=== PATIENT | female | born 1950 | race Caucasian/White ===

== ENCOUNTER 2019-05-31 11:47 | Emergency (ER) | payer MEDICARE, OTHER ==
[~2019-05-31] VITALS: Ht 172.7 cm; Wt 68.0 kg
--- OUTSIDE RECORDS SUMMARY | ~2019-05-31 | XMS | Clinical Summary ---
Demographics + + + | Address | [email or web address] | | | [place] [address] | + + + | Home Phone | | + + + | Preferred Language | Unknown | + + + | Marital Status | | + + + | Nondenominational Affiliation | Unknown | + + + | Race | Unknown | + + + | Ethnic Group | Unknown | + + + Author + + + | Author | [facility] (Historical as of | | | 04-16-19) | + + + | Organization | [facility] (Historical as of | | | 04-16-19) | + + + | Address | Unknown | + + + | Phone | Unavailable | + + + Support + + +---------+ + | Name | Relationship | Address | Phone | + + +---------+ + | Avel Carvajal | ECON | Unknown | | + + +---------+ + Care Team Providers + +------+ + | Care Frame Expander Name | Role | Phone | + +------+ + PP | Unavailable | + +------+ + Allergies Not on File Current Medications Not on file Active Problems Not on file Social History + +-------+ +--------+------+ | Tobacco Use | Types | Packs/Day | Years | Date | | | | | Used | | + +-------+ +--------+------+ | Never Assessed | | | | | + +-------+ +--------+------+ + + + | Sex Assigned at | Date Recorded | | | | + + + | Not on file | | + + + Plan of Treatment +--------+ + + + + | Date | Type | Specialty | Care Team | Description | +--------+ + + + + | 06/02/ | Initial | | Peace Bill DO | | | 2019 | consult | | [address] | | | | | | [place] | | | | | | [address] | | | | | | | | +--------+ + + + + + + + + + | Health Maintenance | Due Date | Last Done | Comments | + + + + + | Vaccine: | | | | | Dtap/Tdap/Td (1 - | 7 | | | | Tdap) | | | | + + + + + | Breast Cancer | | | | | Screening | 8 | | | | (Mammogram) | | | | + + + + + | Colon Cancer | | | | | Screening | 8 | | | | (Colonoscopy) | | | | + + + + + | Vaccine: Zoster (1 | | | | | of 2) | 8 | | | + + + + + | DEXA SCAN SCREENING | | | | | | 3 | | | + + + + + | Vaccine: | | 07/17/2015 | | | Pneumococcal 65+ | 6 | | | | Low/Medium Risk (2 | | | | | of 2 - PCV13) | | | | + + + + + | Vaccine: Influenza | | 08/07/2012, 08/11/2008, | | | (#1) | 9 | 08/20/2007 | | + + + + + Results Not on filefrom Last 3 Months Insurance + +--------+ +------+-------+ + | Payer | Benefi | Subscriber | Type | Phone | Address | | | t Plan | ID | | | | | | / | | | | | | | Group | | | | | + +--------+ +------+-------+ + | MEDICARE | MEDICA | [id number] | | | [address] | | | RE | | | | [place] [address] | | | IP-OP | | | | | + +--------+ +------+-------+ + + +--------+ +--------+ + + | Guarantor Name | Accoun | Relation to | Date | Phone | Billing Address | | | t Type | Patient | of | | | | | | | | | | + +--------+ +--------+ + + | JOZEF CARVAJAL | Person | Self [birth year] Home: | [address] | | | al/Fam | | [phone] | [phone] [place] [address] | | | jemal | | | [phone] | | + +--------+ +--------+ + +"
--- OUTSIDE RECORDS SUMMARY | ~2019-05-31 | XMS ---
Demographics + + + | Address | [address] | | | [place] [address] | + + + | Preferred Language | Unknown | + + + | Marital Status | Unknown | + + + | Advent Affiliation | Unknown | + + + | Race | Unknown | + + + | Ethnic Group | Unknown | + + + Author + + + | Author | [facility] | + + + | Organization | [facility] | + + + | Address | [address] | | | [place] [address] | + + + | Phone | | + + + Care Team Providers + + + + | Care Director Orange Name | Role | Phone | + + + + Unavailable | Unavailable | + + + + PROBLEMS +---------+ + + +--------+ + + | Type | Condition | ICD9-CM | ICZ53-[id number] | Onset | Condition | SNOMED | | | | Code | Code | Dates | Status | Code | +---------+ + + +--------+ + + | Problem | Insomnia | | G47.00 | | Active | 351757084 | +---------+ + + +--------+ + + | Problem | Hypothyroi | | E03.9 | | Active | 89896834 | | | dism | | | | | | +---------+ + + +--------+ + + | Problem | History of | | Z86.39 | | Active | 026638126 | | | | | | | | | | | hyperlipid | | | | | | | | emia | | | | | | +---------+ + + +--------+ + + | Problem | Anxiety | | F41.9 | | Active | 73685731 | +---------+ + + +--------+ + + | Problem | Hypothyroi | | E03.9 | | Active | 28327216 | | | dism, | | | | | | | | unspecifie | | | | | | | | d | | | | | | +---------+ + + +--------+ + + | Problem | History of | Z86.73 | | | Active | 580621023 | | | TIA | | | | | | | | (transient | | | | | | | | ischemic | | | | | | | | attack) | | | | | | +---------+ + + +--------+ + + ALLERGIES No Information SOCIAL HISTORY Never Assessed PLAN OF CARE + +---------+ | Activity | Details | + +---------+ +---+ | | +---+ + + + | Pending Test | TSH | + + + | Pending Test | Lipid Panel | + + + VITAL SIGNS MEDICATIONS Unknown Medications RESULTS No Results PROCEDURES No Known procedures IMMUNIZATIONS No Known Immunizations MEDICAL (GENERAL) HISTORY + + +--------+ | Type | Description | Date | + + +--------+ | Medical History | stint put in to left | | | | carotid artery | | + + +--------+ | Medical History | stroke | | + + +--------+ | Medical History | high cholesterol | | + + +--------+ | Medical History | htn | | + + +--------+ | Medical History | hrt | | + + +--------+ | Medical History | Left-sided ischial pain | | + + +--------+ | Medical History | Knee pain, right | | + + +--------+ | Medical History | Pain in left knee | | + + +--------+ | Medical History | Other chronic pain | | + + +--------+ | Surgical History | stint surgery | 01/2015 | + + +--------+"
--- OUTSIDE RECORDS SUMMARY | ~2019-05-31 | XMS ---
Demographics + + + | Address | [address] | | | [place] [address] | + + + | Preferred Language | Unknown | + + + | Marital Status | Unknown | + + + | Sabianism Affiliation | Unknown | + + + | Race | Unknown | + + + | Ethnic Group | Unknown | + + + Author + + + | Author | [facility] | + + + | Organization | [facility] | + + + | Address | [address] | | | [place] [address] | + + + | Phone | | + + + Care Team Providers + + + + | Care Manager Heart Failure Name | Role | Phone | + + + + Unavailable | Unavailable | + + + + PROBLEMS + + + + + + + + | Type | Condition | ICD9-CM | XIP12-XC | Onset | Condition | SNOMED | | | | Code | Code | Dates | Status | Code | + + + + + + + + | Assessment | Pain in | | M25.561 | Nov, | Active | [id number] | | | right knee | | | 2017 | | [address] | + + + + + + + + | Problem | Hypothyroi | | E03.9 | | Active | 65359234 | | | dism, | | | | | | | | unspecifie | | | | | | | | d | | | | | | + + + + + + + + | Problem | History of | Z86.73 | | | Active | 663766823 | | | TIA | | | | | | | | (transient | | | | | | | | ischemic | | | | | | | | attack) | | | | | | + + + + + + + + | Assessment | History of | | Z86.39 | 25 Nov, | Active | | | | | | | 2016 | | | | | hyperlipid | | | | | | | | emia | | | | | | + + + + + + + + | Assessment | Hypothyroi | | E03.9 | Nov, | Active | 64793653 | | | dism | | | 2016 | | | + + + + + + + + | Problem | History of | | Z86.39 | | Active | | | | | | | | | | | | hyperlipid | | | | | | | | emia | | | | | | + + + + + + + + | Problem | Anxiety | | F41.9 | | Active | 76445753 | + + + + + + + + ALLERGIES + + + + +---------+ | Substance | Reaction | Event Type | Date | Status | + + + + +---------+ | N.K.[email or web address]. | Unknown | Non Drug | Nov, | Unknown | | | | Allergy | | | + + + + +---------+ SOCIAL HISTORY No smoking Hx information available PLAN OF CARE VITAL SIGNS + + + + | Height | 67 in | 2016-12-23 | + + + + | Weight | 168.4 lbs | 2016-12-23 | + + + + | BMI | 26.37 kg/m2 | 2016-12-23 | + + + + | Temperature | 97.8 degrees Fahrenheit | 2016-12-23 | + + + + | Heart Rate | 96 /min | 2016-12-23 | + + + + | Blood pressure systolic | 138 mm Hg | 2016-12-23 | + + + + | Blood pressure diastolic | 83 mm Hg | 2016-12-23 | + + + + MEDICATIONS + + + + + + + +--------+ | Medicati | Instruct | Dosage | Frequenc | Start | End Date | Duration | Status | | on | ions | | y | Date | | | | + + + + + + + +--------+ | Red | Orally | take 2 | 12h | 25 Apr, | 20 May, | 30 | Active | | Yeast | bid | tablets | | 2017 | 2018 | day(s) | | | Rice 600 | | as | | | | | | | MG | | directed | | | | | | + + + + + + + +--------+ | Zolpidem | Orally | 1 tablet | 24h | | | 90 days | Active | | | Once a | at | | | | | | | Tartrate | day | bedtime | | | | | | | 5 MG | | | | | | | | + + + + + + + +--------+ | Progeste | po 3 | 1 cap | | | | 70 days | Active | | elvia 100 | times a | | | | | | | | MG | week | | | | | | | + + + + + + + +--------+ | Estradio | Orally 3 | 1 tablet | | | | 90 days | Active | | l 0.5 MG | days | | | | | | | | | per week | | | | | | | + + + + + + + +--------+ | Levoceti | Orally | 1 tab(s) | 24h | | May, | 90 days | Active | | rizine | daily | | | | 2016 | | | | Dihydroc | | | | | | | | | hloride | | | | | | | | | 5 MG | | | | | | | | + + + + + + + +--------+ | Levothyr | Orally | 1 tablet | 24h | 16 Oct, | | 30 days | Active | | oxine | Once a | | | 2015 | | | | | Sodium | day | | | | | | | | 75 MCG | | | | | | | | + + + + + + + +--------+ | Aspirin | p.o. bid | 1 tab(s) | 12h | | | | Active | | 81 mg | | | | | | | | + + + + + + + +--------+ | Fish Oil | | | | | | | Active | + + + + + + + +--------+ | Probioti | | | | | | | Active | | c | | | | | | | | + + + + + + + +--------+ | Venlafax | Orally | 1 tablet | 24h | | | 90 days | Active | | ine HCl | once | with | | | | | | | 75 mg | daily | food | | | | | | + + + + + + + +--------+ | Super B | | | | | | | Active | | Complex | | | | | | | | + + + + + + + +--------+ | Magnesiu | | | | | | | Active | | m | | | | | | | | + + + + + + + +--------+ RESULTS No Results PROCEDURES + + + + + | Procedure | Date Ordered | Related Diagnosis | Body Site | + + + + + | Office Visit, Est | December 23, 2016 | | | | Pt., Level 3 | | | | + + + + + IMMUNIZATIONS No Known Immunizations"
--- OUTSIDE RECORDS SUMMARY | ~2019-05-31 | XMS ---
Demographics + + + | Address | [address] | | | [place] [address] | + + + | Preferred Language | Unknown | + + + | Marital Status | Unknown | + + + | Jainism Affiliation | Unknown | + + + | Race | Unknown | + + + | Ethnic Group | Unknown | + + + Author + + + | Author | [facility] | + + + | Organization | [facility] | + + + | Address | [address] | | | [place] [address] | + + + | Phone | | + + + Care Team Providers + + + + | Care Nursing Care Attendant Name | Role | Phone | + + + + Unavailable | Unavailable | + + + + PROBLEMS +---------+ + + +--------+ + + | Type | Condition | ICD9-CM | [id number] | Onset | Condition | SNOMED | | | | Code | Code | Dates | Status | Code | +---------+ + + +--------+ + + | Problem | Hypothyroi | | E03.9 | | Active | 44148559 | | | dism | | | | | | +---------+ + + +--------+ + + | Problem | Hypothyroi | | E03.9 | | Active | 19181236 | | | dism, | | | | | | | | unspecifie | | | | | | | | d | | | | | | +---------+ + + +--------+ + + | Problem | Anxiety | | F41.9 | | Active | 44952660 | +---------+ + + +--------+ + + | Problem | History of | Z86.73 | | | Active | 324336552 | | | TIA | | | [...] +---------+ + + +--------+ + + ALLERGIES Unknown Allergies SOCIAL HISTORY No smoking Hx information available PLAN OF CARE VITAL SIGNS MEDICATIONS Unknown Medications RESULTS No Results PROCEDURES No Known procedures IMMUNIZATIONS No Known Immunizations"
--- OUTSIDE RECORDS SUMMARY | ~2019-05-31 | XMS ---
Demographics + + + | Address | [address] | | | [place] [address] | + + + | Preferred Language | Unknown | + + + | Marital Status | Unknown | + + + | Jain Affiliation | Unknown | + + + | Race | Unknown | + + + | Ethnic Group | Unknown | + + + Author + + + | Author | [facility] | + + + | Organization | [facility] | + + + | Address | [address] | | | [place] [address] | + + + | Phone | | + + + Care Team Providers + + + + | Care Olive Packer Name | Role | Phone | + + + + Unavailable | Unavailable | + + + + PROBLEMS +---------+ + + +--------+ + + | Type | Condition | ICD9-CM | AAD45-XM | Onset | Condition | SNOMED | | | | Code | Code | Dates | Status | Code | +---------+ + + +--------+ + + | Problem | Hypothyroi | | E03.9 | | Active | 49853382 | | | dism | | | | | | +---------+ + + +--------+ + + | Problem | Hypothyroi | | E03.9 | | Active | 74188132 | | | dism, | | | | | | | | unspecifie | | | | | | | | d | | | | | | +---------+ + + +--------+ + + | Problem | Anxiety | | F41.9 | | Active | 64834877 | +---------+ + + +--------+ + + | Problem | History of | Z86.73 | | | Active | 404320076 | | | TIA | | | [...] available PLAN OF CARE VITAL SIGNS MEDICATIONS + + + + + + + +--------+ | Medicati | Instruct | Dosage | Frequenc | Start | End Date | Duration | Status | | on | ions | | y | Date | | | | + + + + + + + +--------+ | Levothyr | Orally | 1 tablet | 24h | 16 Oct, | | 90 days | Active | | oxine | [...] | 1 cap | | | | 90 days | Active | | elvia 100 | times a | | | | | | | | mg | week | | | | | | | + + + + + + + +--------+ RESULTS No Results PROCEDURES No Known procedures IMMUNIZATIONS No Known Immunizations"
--- OUTSIDE RECORDS SUMMARY | ~2019-05-31 | XMS ---
Demographics + + + | Address | [address] | | | [place] [address] | + + + | Preferred Language | Unknown | + + + | Marital Status | Unknown | + + + | Judaism Affiliation | Unknown | + + + | Race | Unknown | + + + | Ethnic Group | Unknown | + + + Author + + + | Author | [facility] | + + + | Organization | [facility] | + + + | Address | [address] | | | [place] [address] | + + + | Phone | | + + + Care Team Providers + + + + | Care Early Childhood Teacher Name | Role | Phone | + + + + Unavailable | Unavailable | + + + + PROBLEMS +---------+ + + +--------+ + + | Type | Condition | ICD9-CM | MHY91-KC | Onset | Condition | SNOMED | | | | Code | Code | Dates | Status | Code | +---------+ + + +--------+ + + | Problem | Hypothyroi | | E03.9 | | Active | 24248535 | | | dism | | | | | | +---------+ + + +--------+ + + | Problem | Hypothyroi | | E03.9 | | Active | 87244785 | | | dism, | | | | | | | | unspecifie | | | | | | | | d | | | | | | +---------+ + + +--------+ + + | Problem | Anxiety | | F41.9 | | Active | 66388272 | +---------+ + + +--------+ + + | Problem | History of | Z86.73 | | | Active | 361730620 | | | TIA | | | | | | | | (transient | | | | | | | | ischemic | | | | | | | | attack) | | | | | | +---------+ + + +--------+ + + | Problem | History of | | Z86.39 | | Active | 488196200 | | | | | | | | | | | hyperlipid | | | | | | | | emia | | | | | | +---------+ + + +--------+ + + ALLERGIES + + + + +---------+ | Substance | Reaction | Event Type | Date | Status | + + + + +---------+ | N.KCharlie. | Unknown | Non Drug | Mar, | Unknown | | | | Allergy | | | + + + + +---------+ SOCIAL HISTORY No smoking Hx information available PLAN OF CARE + +---------+ | Activity | Details | + +---------+ +---+ | | +---+ + + + | Follow Up | prn Reason:null | + + + | Pending Test | Urine Culture, Routine | + + + VITAL SIGNS + + + + | Height | 67 in | 2017-04-25 | + + + + | Weight | 165.4 lbs | 2017-04-25 | + + + + | BMI | 25.90 kg/m2 | 2017-04-25 | + + + + | Temperature | 99.7 degrees Fahrenheit | 2017-04-25 | + + + + | Heart Rate | 110 /min | 2017-04-25 | + + + + | Blood pressure systolic | 170 mm Hg | 2017-04-25 | + + + + | Blood pressure diastolic | 111 mm Hg | 2017-04-25 | + + + + MEDICATIONS + [...] | 12h | 25 Apr, | 20 December, | 30 | Active | | Yeast [...] + + + + + +--------+ | Septra | Orally | 1 tablet | 12h | | Mar, | 3 days | Active | | DS | every 12 | | | | 2017 | | | | 800-160 | hrs | | | | | | | | MG | | | | | | [...] | 90 days | Active | | eliva 100 | times a | | | [...] + + + + + +--------+ RESULTS + +--------+ + + | Name | Result | Date | Reference Range | + +--------+ + + | Urinalysis, Dip | | 2017-04-25 | | | (IH) | | | | + +--------+ + + | Specific [place] | 1.010 | | | + +--------+ + + | pH | 7 | | | + +--------+ + + | Leukocytes | 25 | | | + +--------+ + + | Nitrite, Urine | Neg | | | + +--------+ + + | Protein | Neg | | | + +--------+ + + | Glucose | Norm | | | + +--------+ + + | Ketones | Neg | | | + +--------+ + + | Urobilingen, | Norm | | | | Semi-Qn | | | | + +--------+ + + | Bilirubin | Neg | | | + +--------+ + + | Blood Hemoglobin | Neg | | | | (BLD) | | | | + +--------+ + + PROCEDURES + + + + + | Procedure | Date Ordered | Related Diagnosis | Body Site | + + + + + | LAB URINALYSIS (DIP | Apr 25, 2017 | | | | STICK ONLY | | | | + + + + + | Office Visit, Est | Apr 25, 2017 | | | | Pt., Level 3 | | | | + + + + + | DOC MEDS VERIFIED | Apr 25, 2017 | | | | W/PT OR RE | | | | + + + + + | [facility] MED/CURRENT | Apr 25, 2017 | | | | MED MERGE | | | | + + + + + IMMUNIZATIONS No Known Immunizations"
--- OUTSIDE RECORDS SUMMARY | ~2019-05-31 | XMS ---
Demographics + + + | Address | [address] | | | [place] [address] | + + + | Preferred Language | Unknown | + + + | Marital Status | Unknown | + + + | Catholic Affiliation | Unknown | + + + | Race | Unknown | + + + | Ethnic Group | Unknown | + + + Author + + + | Author | [facility] | + + + | Organization | [facility] | + + + | Address | [address] | | | [place] [address] | + + + | Phone | | + + + Care Team Providers + + + + | Care Licensed Veterinary Technician Name | Role | Phone | + + + + Unavailable | Unavailable | + + + + PROBLEMS +---------+ + + +--------+ + + | Type | Condition | ICD9-CM | AIC26-[id number] | Onset | Condition | SNOMED | | | | Code | Code | Dates | Status | Code | +---------+ + + +--------+ + + | Problem | Insomnia | | G47.00 | | Active | 847780573 | +---------+ + + +--------+ + + | Problem | Hypothyroi | | E03.9 | | Active | 03148320 | | | dism | | | | | | +---------+ + + +--------+ + + | Problem | History of | | Z86.39 | | Active | 472747968 | | | | | | | | | | | hyperlipid | | | | | | | | emia | | | | | | +---------+ + + +--------+ + + | Problem | Anxiety | | F41.9 | | Active | 43330688 | +---------+ + + +--------+ + + | Problem | Hypothyroi | | E03.9 | | Active | 28543078 | | | dism, | | | | | | | | unspecifie | | | | | | | | d | | | | | | +---------+ + + +--------+ + + | Problem | History of | Z86.73 | | | Active | 225830954 | | | TIA | | | | | | | | (transient | | | | | | | | ischemic | | | | | | | | attack) | | | | | | +---------+ + + +--------+ + + ALLERGIES No Information SOCIAL HISTORY Never Assessed PLAN OF CARE VITAL SIGNS MEDICATIONS Unknown [...]
--- OUTSIDE RECORDS SUMMARY | ~2019-05-31 | XMS ---
Demographics + + + | Address | [address] | | | [place] [address] | + + + | Preferred Language [...] | + + + | Organization | [facility] | + + + | Address | [address] | | | [place] [address] | + + + | Phone | | + + + Care Team Providers + + + + | Care Hair Salon Manager Name | Role | Phone | + + + + Unavailable | Unavailable | + + + + PROBLEMS +---------+ + + +--------+ + + | Type | Condition | ICD9-CM | [id number] | Onset | Condition | SNOMED | | | | Code | Code | Dates | Status | Code | +---------+ + + +--------+ + + | Problem | Hypothyroi | | E03.9 | | Active | 22673706 | | | dism | | | | | | +---------+ + + +--------+ + + | Problem | Hypothyroi | | E03.9 | | Active | 53121672 | | | dism, | | | | | | | | unspecifie | | | | | | | | d | | | | | | +---------+ + + +--------+ + + | Problem | Anxiety | | F41.9 | | Active | 91815525 | +---------+ + + +--------+ + + | Problem | History of | Z86.73 | | | Active | 900552521 | | | TIA | | | [...] + + + | Pending Test | Comp. Metabolic Panel (14) | + + + | Pending Test | Lipid Panel | + + + | Pending Test | CBC | + + + | | ,Reason: | + + + VITAL SIGNS MEDICATIONS Unknown Medications RESULTS No Results PROCEDURES No Known procedures IMMUNIZATIONS No Known Immunizations"
--- OUTSIDE RECORDS SUMMARY | ~2019-05-31 | XMS ---
Demographics + + + | Address | [address] | | | [place] [address] | + + + | Preferred Language [...] | + + + | Organization | [facility] | + + + | Address | [address] | | | [place] [address] | + + + | Phone | | + + + Care Team Providers + + + + | Care Fabric Coating Supervisor Name | Role | Phone | + + + + Unavailable | Unavailable | + + + + PROBLEMS +---------+ + + +--------+ + + | Type | Condition | ICD9-CM | WLM79-FU | Onset | Condition | SNOMED | | | | Code | Code | Dates | Status | Code | +---------+ + + +--------+ + + | Problem | Hypothyroi | | E03.9 | | Active | 83664111 | | | dism | | | | | | +---------+ + + +--------+ + + | Problem | Hypothyroi | | E03.9 | | Active | 10419890 | | | dism, | | | | | | | | unspecifie | | | | | | | | d | | | | | | +---------+ + + +--------+ + + | Problem | Anxiety | | F41.9 | | Active | 42605917 | +---------+ + + +--------+ + + | Problem | History of | Z86.73 | | | Active | 760793781 | | | TIA | | | | | | | | (transient | | | | | | | | ischemic | | | | | | | | attack) | | | | | | +---------+ + + +--------+ + + | Problem | History of | | Z86.39 | | Active | 329847233 | | | | | | | | | | | hyperlipid | | | | | | | | emia | | | | | | +---------+ + + +--------+ + + ALLERGIES Unknown Allergies SOCIAL HISTORY No smoking Hx information available PLAN OF CARE VITAL SIGNS MEDICATIONS + + + + +--------+ + +--------+ | Medicati | Instruct | Dosage | Frequenc | Start | End Date | Duration | Status | | on | ions | | y | Date | | | | + + + + +--------+ + +--------+ | Venlafax | Orally | 1 tablet | 24h | | | 90 days | Active | | ine HCl | once | with | | | | | | | 75 mg | daily | food | | | | | | + + + + +--------+ + +--------+ RESULTS No Results PROCEDURES No Known procedures IMMUNIZATIONS No Known Immunizations"
--- OUTSIDE RECORDS SUMMARY | ~2019-05-31 | XMS | Clinical Summary ---
Demographics + + + | Address | [address] | | | [place] [address] | + + + | Home Phone | | + + + | Preferred Language | Unknown | + + + | Marital Status | | + + + | Advent Affiliation | Unknown | + + + | Race | Unknown | + + + | Ethnic Group | Unknown | + + + Author + + + | Author | [facility] | | | and [place] | + + + | Organization | [facility] | | | and [place] | + + + | Address | Unknown | + + + | Phone | Unavailable | + + + Care Team Providers + +------+ + | Care Automation Sales Manager Name | Role | Phone | + +------+ + PCP | Unavailable | + +------+ + Allergies Not on File Medications Not on file Active Problems Not [...] on file | | + + + + + + + | Job Start Date | Occupation | Industry | + + + + | Not on file | Not on file | Not on file | + + + + + + + + | Travel History | Travel Start | Travel End | + + + + + + | No recent travel history available. | + + Last Filed Vital Signs Not on file Plan of Treatment +--------+---------+ + + + | Date | Type | Specialty | Care Team | Description | +--------+---------+ + + + | 06/02/ | Office | Cardiology | Peace Bill DO | | | 2019 | Visit | | [address] | | | | | | [place] | | | | | | [address] | | | | | | | | +--------+---------+ + + + + + + + + | Health Maintenance | Due Date | Last Done | Comments | + + + + + | Hepatitis C | | | | | Screening | 8 | | | + + + + + | Vaccine: | | | | | Dtap/Tdap/Td (1 - | 7 | | | | Tdap) | | | | + + + + + | Colorectal Cancer | | | | | Screening | 8 | | | | (Colonoscopy) | | | | + + + + + | Vaccine: Zoster (1 | | | | | of 2) | 8 | | | + + + + + | Breast Cancer | | | | | Screening | 3 | | | + + + + + | Vaccine: | | | | | Pneumococcal 65+ | 3 | | | | Low/Medium Risk (1 | | | | | of 2 - PCV13) | | | | + + + + + | Adult Annual | | | | | Wellness Visit | 9 | | | + + + + + | Vaccine: Influenza | | | | | (#1) | 9 | | | + + + + + Results Not on filefrom Last 3 Months Advance Directives Patient has advance care planning documents on file. For more information, please contact:[facility] and [facility] [place] [address]"
--- OUTSIDE RECORDS SUMMARY | ~2019-05-31 | XMS | Clinical Summary ---
Demographics + + + | Address | [email or web address] | | | [place] [address] | + + + | Home Phone | | + + + | Preferred Language | Unknown | + + + | Marital Status | | + + + | Denominational Affiliation | Unknown | + + + | Race | Unknown | + + + | Ethnic Group | Unknown | + + + Author + + + | Author | [facility] (Historical as of | | | 04-16-19) | + + + | Organization | [facility] (Historical as of | | | 04-16-19) [...] Team Providers + +------+ + | Care Chili Maker Name | Role | Phone | + [...] | | | | | [place] | | | | | | [address] | | | | | | | [...] +------+-------+ + | MEDICARE | MEDICA | [id number] | | | [address] | | | RE | | | | [place] [address] | | | IP-OP | | | [...] Self | [birth year] Home: | [address] | | | al/Fam | | 1950 | [phone] | [place] [address] | | | jemal | | | [phone] | | + +--------+ +--------+ + +"
--- OUTSIDE RECORDS SUMMARY | ~2019-05-31 | XMS ---
Demographics + + + | Address | [address] | | | [place] [address] | + + + | Preferred Language | Unknown | + + + | Marital Status | Unknown | + + + | Mormon Affiliation | Unknown | + + + | Race | Unknown | + + + | Ethnic Group | Unknown | + + + Author + + + | Author | [facility] | + + + | Organization | [facility] | + + + | Address | [address] | | | [place] [address] | + + + | Phone | | + + + Care Team Providers + + + + | Care Ceramics Engineer Name | Role | Phone | + + + + Unavailable | Unavailable | + + + + PROBLEMS +---------+ + + +--------+ + + | Type | Condition | ICD9-CM | [id number] | Onset | Condition | SNOMED | | | | Code | Code | Dates | Status | Code | +---------+ + + +--------+ + + | Problem | Insomnia | | G47.00 | | Active | 382766239 | +---------+ + + +--------+ + + | Problem | Hypothyroi | | E03.9 | | Active | 99199252 | | | dism | | | | | | +---------+ + + +--------+ + + | Problem | History of | | Z86.39 | | Active | 501500737 | | | | | | | | | | | hyperlipid | | | | | | | | emia | | | | | | +---------+ + + +--------+ + + | Problem | Anxiety | | F41.9 | | Active | 72342244 | +---------+ + + +--------+ + + | Problem | Hypothyroi | | E03.9 | | Active | 89270367 | | | dism, | | | | | | | | unspecifie | | | | | | | | d | | | | | | +---------+ + + +--------+ + + | Problem | History of | Z86.73 | | | Active | 582342446 | | | TIA | | | | | | | | (transient | | | | | | | | ischemic | | | | | | | | attack) | | | | | | +---------+ + + +--------+ + + ALLERGIES No Known Allergies SOCIAL HISTORY Never Assessed PLAN OF CARE + +---------+ | Activity | Details | + +---------+ +---+ | | +---+ + + + | Follow Up | 6 Weeks Reason:null | + + + VITAL SIGNS + + + + | Height | 67 in | 2017-05-25 | + + + + | Weight | 165.8 lbs | 2017-05-25 | + + + + | BMI | 25.97 kg/m2 | 2017-05-25 | + + + + | Temperature | 97.7 degrees Fahrenheit | 2017-05-25 | + + + + | Heart Rate | 103 /min | 2017-05-25 | + + + + | Blood pressure systolic | 149 mm Hg | 2017-05-25 | + + + + | Blood pressure diastolic | 97 mm Hg | 2017-05-25 | + + + + MEDICATIONS + + + + + + + +--------+ | Medicati | Instruct | Dosage | Frequenc | Start | End Date | Duration | Status | | on | ions | | y | Date | | | | + + + + + + + +--------+ | Pitavast | Orally | 1 tablet | 24h | 26 Sep, | | 30 | Active | | atin | Once a | | | 2017 | | day(s) | | | Calcium | day | | | | | | | | 1 MG | | | | | | [...] | 1 tablet | 24h | 16 Feb, | | 90 days | Active | | oxine | Once a | | | 2016 | | | | | Sodium | [...] Orally | 1 tablet | 24h | 25 Sep, | | 30 | Active | | oxine | Once a | on an | | 2016 | | day(s) | | | Sodium | day | empty | | | | | | | 100 MCG | | stomach | | | | | | | | | in the | | | | | | | | | morning | | | | | | + + + + + + + +--------+ | HydrOXYz | Orally | 1 tablet | | | | 30 | Active | | ine HCl | qhs | as | | | | day(s) | | | 50 MG | | needed | | | | | | + [...]
--- OUTSIDE RECORDS SUMMARY | ~2019-05-31 | XMS ---
Demographics + + + | Address | [address] | | | [place] [address] | + + + | Preferred Language [...] | + + + | Organization | [facility] | + + + | Address | [address] | | | [place] [address] | + + + | Phone | | + + + Care Team Providers + + + + | Care Tattoo Identifier Name | Role | Phone | + + + + Unavailable | Unavailable | + + + + PROBLEMS +---------+ + + +--------+ + + | Type | Condition | ICD9-CM | IIZ69-YW | Onset | Condition | SNOMED | | | | Code | Code | Dates | Status | Code | +---------+ + + +--------+ + + | Problem | Hypothyroi | | E03.9 | | Active | [id number] | | | dism | | | | | | +---------+ + + +--------+ + + | Problem | Hypothyroi | | E03.9 | | Active | 11475999 | | | dism, | | | | | | | | unspecifie | | | | | | | | d | | | | | | +---------+ + + +--------+ + + | Problem | Anxiety | | F41.9 | | Active | 89376830 | +---------+ + + +--------+ + + | Problem | History of | Z86.73 | | | Active | 437351610 | | | TIA | | | [...] + + + +--------+ + +--------+ | Levoceti | Orally | 1 tab(s) | 24h | | 22 Sep, | 90 days | Active | | rizine | daily | | | | 2017 | | | | Dihydroc | | | | | | | | | hloride | | | | | | | | | 5 MG | | | | | | | | + + + + +--------+ + +--------+ RESULTS No Results PROCEDURES No Known procedures IMMUNIZATIONS No Known Immunizations"
--- OUTSIDE RECORDS SUMMARY | ~2019-05-31 | XMS ---
Demographics + + + | Address | [address] | | | [place] [address] | + + + | Preferred Language | Unknown | + + + | Marital Status | Unknown | + + + | Restorationist Affiliation | Unknown | + + + | Race | Unknown | + + + | Ethnic Group | Unknown | + + + Author + + + | Author | [facility] | + + + | Organization | [facility] | + + + | Address | [address] | | | [place] [address] | + + + | Phone | | + + + Care Team Providers + + + + | Care Felt Dyeing Machine Tender Name | Role | Phone | + + + + Unavailable | Unavailable | + + + + PROBLEMS +---------+ + + +--------+ + + | Type | Condition | ICD9-CM | [id number] | Onset | Condition | SNOMED | | | | Code | Code | Dates | Status | Code | +---------+ + + +--------+ + + | Problem | Insomnia | | G47.00 | | Active | [id number] | +---------+ + + +--------+ + + | Problem | Hypothyroi | | E03.9 | | Active | 35892791 | | | dism | | | | | | +---------+ + + +--------+ + + | Problem | History of | | Z86.39 | | Active | 866621226 | | | | | | | | | | | hyperlipid | | | | | | | | emia | | | | | | +---------+ + + +--------+ + + | Problem | Anxiety | | F41.9 | | Active | 60096567 | +---------+ + + +--------+ + + | Problem | Hypothyroi | | E03.9 | | Active | 43360709 | | | dism, | | | | | | | | unspecifie | | | | | | | | d | | | | | | +---------+ + + +--------+ + + | Problem | History of | Z86.73 | | | Active | 134676923 | | | TIA | | | [...]
--- OUTSIDE RECORDS SUMMARY | ~2019-05-31 | XMS ---
Demographics + + + | Address | [address] | | | [place] [address] | + + + | Preferred Language | Unknown | + + + | Marital Status | Unknown | + + + | Faith Affiliation | Unknown | + + + | Race | Unknown | + + + | Ethnic Group | Unknown | + + + Author + + + | Author | [facility] | + + + | Organization | [facility] | + + + | Address | [address] | | | [place] [address] | + + + | Phone | | + + + Care Team Providers + + + + | Care Underground Truck Operator Name | Role | Phone | + + + + Unavailable | Unavailable | + + + + PROBLEMS +---------+ + + +--------+ + + | Type | Condition | ICD9-CM | TBP01-PT | Onset | Condition | SNOMED | | | | Code | Code | Dates | Status | Code | +---------+ + + +--------+ + + | Problem | Insomnia | | G47.00 | | Active | 266738304 | +---------+ + + +--------+ + + | Problem | Hypothyroi | | E03.9 | | Active | 11509506 | | | dism | | | | | | +---------+ + + +--------+ + + | Problem | History of | | Z86.39 | | Active | 969475236 | | | | | | | | | | | hyperlipid | | | | | | | | emia | | | | | | +---------+ + + +--------+ + + | Problem | Anxiety | | F41.9 | | Active | 60129658 | +---------+ + + +--------+ + + | Problem | Hypothyroi | | E03.9 | | Active | 77733572 | | | dism, | | | | | | | | unspecifie | | | | | | | | d | | | | | | +---------+ + + +--------+ + + | Problem | History of | Z86.73 | | | Active | 010718514 | | | TIA | | | [...]
--- OUTSIDE RECORDS SUMMARY | ~2019-05-31 | XMS ---
Demographics + + + | Address | [address] | | | [place] [address] | + + + | Preferred Language | Unknown | + + + | Marital Status | Unknown | + + + | Gnosticism Affiliation | Unknown | + + + | Race | Unknown | + + + | Ethnic Group | Unknown | + + + Author + + + | Author | [facility] | + + + | Organization | [facility] | + + + | Address | [address] | | | [place] [address] | + + + | Phone | | + + + Care Team Providers + + + + | Care Calculator Operator Name | Role | Phone | + + + + Unavailable | Unavailable | + + + + PROBLEMS +---------+ + + +--------+ + + | Type | Condition | ICD9-CM | SOH90-GW | Onset | Condition | SNOMED | | | | Code | Code | Dates | Status | Code | +---------+ + + +--------+ + + | Problem | Hypothyroi | | E03.9 | | Active | 07286067 | | | dism | | | | | | +---------+ + + +--------+ + + | Problem | Hypothyroi | | E03.9 | | Active | 68370766 | | | dism, | | | | | | | | unspecifie | | | | | | | | d | | | | | | +---------+ + + +--------+ + + | Problem | Anxiety | | F41.9 | | Active | 80415484 | +---------+ + + +--------+ + + | Problem | History of | Z86.73 | | | Active | 915767837 | | | TIA | | | | | | | | (transient | | | | | | | | ischemic | | | | | | | | attack) | | | | | | +---------+ + + +--------+ + + | Problem | History of | | Z86.39 | | Active | 605394351 | | | | | | | [...]
--- OUTSIDE RECORDS SUMMARY | ~2019-05-31 | XMS | Clinical Summary ---
Demographics + + + | Address | [address] | | | [place] [address] | + + + | Home Phone | | + + + | Preferred Language | Unknown | + + + | Marital Status | | + + + | Jain Affiliation | Unknown | + + + | Race | Unknown | + + + | Ethnic Group | Unknown | + + + Author + + + | Author | [facility] | | | and [place] | + + + | Organization | [facility] | | | and [place] | + + + | Address | Unknown | + + + | Phone | Unavailable | + + + Care Team Providers + +------+ + | Care Accordion Repairer Name | Role | Phone | + [...] | | | | | [place] | | | | | | [address] | | | | | | | [...] documents on file. For more information, please contact:[facility] [place] [address]"
[2019-05-31] MEDS ORDERED: ESTRACE0.5 MG PO (12:17)
[2019-05-31] MEDS ORDERED: PROGESTERONE100 MG PO (12:17)
[2019-05-31] MEDS ORDERED: NORVASC5 MG PO (12:18)
[2019-05-31] MEDS ORDERED: LOSARTAN POTASS50 MG PO (12:18)
[2019-05-31] MEDS ORDERED: LEVOTHYROXINE100 MCG PO (12:18)
[2019-05-31] MEDS ORDERED: LEVOCETIRIZINE D5 MG PO (12:19)
[2019-05-31] MEDS ORDERED: ASPIRIN81 MG PO (12:19)
[2019-05-31] MEDS ORDERED: PLAVIX75 MG PO (14:08)
--- NOTE | 2019-05-31 20:39 | EKG ---
[facility] [address] [facility] [place] [address] Signed Normal sinus rhythm Normal ECG No previous ECGs available Confirmed by ALEJANDRO KHAN MD ([id number]) on 05/31/2019 8:39:25 PM Electronically Signed By: ALEJANDRO KHAN MD 05/31/19 2039 PATIENT NAME: ALENAJOZEF KAREN Electrocardiogram DATE OF : 46 PHYSICIAN: ALEJANDRO KHAN MD REPORT #: [id number] REPORT IS CONFIDENTIAL AND NOT TO BE RELEASED WITHOUT AUTHORIZATION
== END 2019-05-31 14:26 | disposition home or self-care (01) ==
LOC: ED 11:47
DX: G45.9 Transient cerebral ischemic attack, unspecified (principal); Z88.8 Allergy status to other drugs, medicaments and biological substances; Z79.899 Other long term (current) drug therapy; Z79.82 Long term (current) use of aspirin
CPT/HCPCS: 70450; 70496; 70498; 71045; 93005; 93010; 99285-25; Q9967

== ENCOUNTER 2022-04-17 05:45 | Day surgery (SDC) | payer MEDICARE, OTHER ==
[~2022-04-17] VITALS: Ht 172.7 cm; Wt 78.2 kg
--- NOTE | ~2022-04-17 | OR ---
[facility] [address] [place], [place] [address] Draft DATE OF OPERATION: 04/17/2022 SURGEON: Alexandra Morgan DO PROCEDURES: Hysteroscopy and dilation and curettage. MACHINE II COREMAKER: None. PREOPERATIVE DIAGNOSES: 1. Postmenopausal bleeding. 2. Thickened endometrium. 3. History of endometrial polyp, on hormone therapy. 4. History of transient ischemic attack, on Plavix. POSTOPERATIVE DIAGNOSES: 1. Postmenopausal bleeding. 2. Thickened endometrium. 3. History of endometrial polyp, on hormone therapy. 4. History of transient ischemic attack, on Plavix. ANESTHESIA: Monitored anesthesia care. COMPLICATIONS: None. BLOOD LOSS: 25 mL. INDICATIONS: The patient is a 71-year-old female, who presented to the office for evaluation of postmenopausal bleeding after an isolated episode of bleeding after her pelvic exam with her PCP. The patient reports this happened previously and required D and C, at which time fundal endometrial polyp was noted. Op note was reviewed. Ultrasound was performed confirming thickened endometrial stripe. Risks, benefits, and alternatives to hysteroscopy and d and C including alternatives of the procedure to be performed in the office were discussed. The patient strongly desired anesthesia care. We discussed risks and benefits of continued Plavix therapy including prolonged bleeding and PATIENT NAME: JOZEF CARVAJAL OPERATIVE REPORT DATE OF : 46 REPORT #: [id number] PHYSICIAN: ALEXANDRA MORGAN DO PCP: MARGOT HYMAN MD REPORT IS CONFIDENTIAL AND NOT TO BE RELEASED WITHOUT AUTHORIZATION [facility] [address] [facility] [place], [place] [address] Draft increased perioperative bleeding versus risks of bridging therapy and elected to continue her Plavix preop. Consents were signed. The patient was scheduled for the procedure. DESCRIPTION OF PROCEDURE: The patient was taken to the operating room, where she was placed under monitored anesthesia care and positioned in dorsal lithotomy. She was prepped and draped in normal sterile fashion. Following prep, a small first-degree perineal laceration was noted due to significant vaginal atrophy. Celi retractor was placed posteriorly and Soler retractor was used anteriorly for visualization of the cervix, which was then grasped with an Allis clamp in the 12 o'clock position. Despite stenosis at the external os, the cervix was easily sequentially dilated with Hegar dilators to accommodate a 6 mm hysteroscope. Hysteroscope was then introduced through the cervix into the endometrium. Diffuse polypoid endometrial thickening was noted. Bilateral tubal ostia were visualized and circumferential curettage of the endometrial cavity was performed with MyoSure REACH device using sterile saline as a distention media with Aqualyx system. Fluid deficit was 70 mL. All instrumentation was removed. Uterine bleeding was noted to be minimal to scant and perineal laceration was repaired with 3-0 chromic in a single subcuticular stitch. Sponge and instrument counts were correct. The patient was taken to Recovery in stable and satisfactory condition. DO STARLA Jacobson/MODL /[id number] Copies: ~ PATIENT NAME: JOZEF CARVAJAL OPERATIVE REPORT DATE OF : 46 REPORT #: [id number] PHYSICIAN: ALEXANDRA MORGAN DO PCP: MARGOT HYMAN MD REPORT IS CONFIDENTIAL AND NOT TO BE RELEASED WITHOUT AUTHORIZATION
[~2022-04-17 05:45] MED LIST: AMBIEN5 MG; ASPIRIN81 MG PO; AZO CRANBERRY1 EAC1 PO; CANDICIDAL CAP1 EACH PO; CO Q-10300 MG PO; D3-5000125 MCG PO; DIGESTIVE ENZY1 EAC2 PO; ESTRACE0.5 MG PO; FRUIT & VEGETA1 EACH PO; GNP B-COMPLEX1 EACH PO; HYDROXYZINE HCL50 MG PO; JOINT SUPPORT1 EACH PO; LEVOCETIRIZINE D5 MG PO; LEVOTHYROXINE100 MCG PO; LOSARTAN POTASS50 MG PO; MAGNESIUM500 MG PO; NORVASC5 MG PO; PLAVIX75 MG PO; PROGESTERONE100 MG PO; STOOL SOFTENER100 MG PO; VENLAFAXINE HCL75 MG PO
--- NOTE | 2022-04-17 08:22 | NUR ---
04/17/22 0822 Chris,Pia 0812 PT ARRIVED TO PACU ON 6L VIA MASK, PT WAKES TO TACTILE STIMULI AND REORIENTED TO PACU. 0814 O2 REMOVED AND PT REPORTS 3/10 PAIN AND TOLERABLE. VSS.
== END 2022-04-17 08:57 | disposition home or self-care (01) ==
LOC: OPS 05:45 → DS 05:45 → OPS 07:30
PROVIDERS: ATTEND Obstetrics & Gynecology
PROC: 0UDB8ZZ Extraction of Endometrium, Via Natural or Artificial Opening Endoscopic (ICD-10-PCS; principal; 2022-04-17 07:30)
DX: N95.0 Postmenopausal bleeding (principal); R93.89 Abnormal findings on diagnostic imaging of other specified body structures; I10 Essential (primary) hypertension; N95.2 Postmenopausal atrophic vaginitis; Z86.73 Personal history of transient ischemic attack (TIA), and cerebral infarction without residual deficits; Z20.822 Contact with and (suspected) exposure to COVID-19
CPT/HCPCS: J1885; J2001; J2405; J2704; J7121

== ENCOUNTER 2023-10-19 09:54 | Emergency (ER) | payer MEDICARE, OTHER ==
[~2023-10-19] VITALS: Ht 172.7 cm; Wt 77.1 kg
[2023-10-19 10:38] LABS: BILIRUBIN, URINE NEGATIVE (negative); BLOOD/HGB, URINE NEGATIVE (Negative); KETONE, URINE NEGATIVE (Negative); LEUK ESTERASE, URINE NEGATIVE (negative); NITRITE, URINE NEGATIVE (negative)
[2023-10-19] MEDS ORDERED: SODIUM CHLORIDE 0.9% 1,000 ML IV ONE (11:00)
[2023-10-19 11:14] LABS: BASOPHILS 1.3 % (0-2); EOSINOPHILS 3.9 % (0-6); HEMATOCRIT 34.6 % (35.0-50.0); HEMOGLOBIN 11.9 g/dL (12.0-18.0); LYMPHOCYTES 21.7 % (24-44); MCH 29.5 (27-36); MCHC 34.2 g/dl (30-36); MCV 86.1 fl (81-99); MONOCYTES 10.2 % (0-12); NEUTROPHILS 62.9 % (39-80); PLATELET COUNT 310 K/uL (140-440); RBC 4.02 M/ul (4.3-5.7)
[2023-10-19 11:39] LABS: ALBUMIN 3.9 g/dL (3.4-5.0); ALBUMIN/GLOBULIN RATIO 1.15 (1.1-2.4); ANION GAP 15.9 (7-21); BILIRUBIN, TOTAL 0.3 ng/dL (0.2-1.0); BUN/CREATININE RATIO 17.39 (6.0-28.6); CALCIUM 9.6 mg/dL (8.5-10.1); CREATININE, SERUM 0.92 mg/dL (0.55-1.02); POTASSIUM 4.9 mmol/L (3.5-5.1); PROTEIN, TOTAL 7.3 g/dL (6.4-8.2); TSH, 3RD GENERATION 1.042 uIU/mL (0.358-3.740)
[2023-10-19 12:16] LABS: ERYTHROCYTE SEDIMENTATION RATE 24
[2023-10-19 12:45] VITALS: BP 137/79
== END 2023-10-19 12:38 | disposition home or self-care (01) ==
LOC: ED 09:54
PROVIDERS: Emergency Medicine
DX: M79.10 Myalgia, unspecified site (principal); E78.00 Pure hypercholesterolemia, unspecified; I10 Essential (primary) hypertension; E03.9 Hypothyroidism, unspecified; Z88.8 Allergy status to other drugs, medicaments and biological substances; Z79.899 Other long term (current) drug therapy
CPT/HCPCS: 36415; 80053; 81003; 82553; 84443; 85025; 85651; 86140; 99283; J7030

== ENCOUNTER 2024-01-28 09:50 | Emergency (ER) | payer MEDICARE, OTHER ==
[~2024-01-28] VITALS: Ht 172.7 cm; Wt 75.0 kg
[2024-01-28] MEDS ORDERED: ACETAMINOPHEN 500 MG TAB PO ONE (10:15)
[2024-01-28] MEDS ORDERED: HYDROCODON-ACE1 EA10 PO (11:20)
[2024-01-28 11:30] VITALS: BP 119/68
== END 2024-01-28 11:30 | disposition home or self-care (01) ==
LOC: ED 09:50
DX: S09.90XA Unspecified injury of head, initial encounter (principal); S83.92XA Sprain of unspecified site of left knee, initial encounter; S83.91XA Sprain of unspecified site of right knee, initial encounter; S93.401A Sprain of unspecified ligament of right ankle, initial encounter; W10.8XXA Fall (on) (from) other stairs and steps, initial encounter; E78.00 Pure hypercholesterolemia, unspecified; I10 Essential (primary) hypertension; E03.9 Hypothyroidism, unspecified; Z88.8 Allergy status to other drugs, medicaments and biological substances; Z79.899 Other long term (current) drug therapy
CPT/HCPCS: 70450; 73560; 73610; 99284-25; A9270